=== PATIENT | male | born 1975 | race Caucasian/White ===

== ENCOUNTER 2021-04-30 02:35 | Emergency (ER) | payer BC ==
--- NOTE | 2021-04-30 03:26 | EDM.PDOC ---
ED HPI GENERAL MEDICAL PROBLEM - General Chief Complaint: Head Injury Stated Complaint: Intoxicated/Laceration Time Seen by Provider: 04/30/21 02:45 Source of Information: Reports: Patient, Police History Limitations: Reports: Intoxication - History of Present Illness INITIAL COMMENTS - FREE TEXT/NARRATIVE: Claude is a 46 year old male who presents to ER per EMS after a fall outside the local bar. Was reported to have fallen and hit the back of his head and was unresponsive. While with EMS, restless and uncooperative. Has small laceration to the back of his head. Is oriented to person and place but does not answer questions with a straight answer. Startles easily. Witnesses report he did "fall hard and was just lying there after". Police report he had sonoro us respirations. Patient admits to a headache. When asked about other concerns, will report an answer like "[phone] friends". Denies shortness of breath or chest pain. No nausea or vomiting. GCS 14, 1 for confusion. Onset: Today, Sudden Duration: Minutes:, Constant Location: Reports: Head Associated Symptoms: Reports: Confusion. Denies: Chest Pain, Cough, Fever/Chills, Loss of Appetite, Nausea/Vomiting, Shortness of Breath Posterior Head Pain Score (Numeric/FACES): 5 Past Medical History - Past Health History Medical/Surgical History: Denies Medical/Surgical History Social & Family History - Tobacco Use Tobacco Use Status *Q: Current Every Day Tobacco User - Alcohol Use Alcohol Use History: Yes Days Per Week of Alcohol Use: 7 Alcohol Use Frequency: Daily ED ROS GENERAL - Review of Systems Review Of Systems: See Below Constitutional: Denies: Fever, Chills, Malaise, Weakness HEENT: Denies: Ear Discharge, Ear Pain, Nosebleed, Throat Pain Respiratory: Denies: Shortness of Breath Cardiovascular: Denies: Chest Pain Endocrine: Denies: Fatigue GI/Abdominal: Denies: Abdominal Pain, Nausea, Vomiting : Reports: No Symptoms Musculoskeletal: Reports: No Symptoms Skin: Reports: Wound Neurological: Reports: Confusion, Headache ED EXAM, HEAD INJURY - Physical Exam Exam: See Below Exam Limited By: Intoxication General Appearance: Alert, Anxious Head: Normocephalic, Scalp Lacerations (1 cm laceration to his posterior scalp) Nexus Criteria: Evidence of Intoxication Eyes: Bilateral Eye: PERRL (does not follow commands to assess EOMs but does look around the room continuously at EMS, police and staff) Ears: Normal External Exam, Normal TMs Nose: Normal Inspection, Normal Mucousa, No Blood, Other (has abrasion and mild swelling to nose, reports that is from previous fall off the roof on Sunday) Throat/Mouth: Normal Inspection, Normal Oropharynx Neck: Non-Tender, Full Range of Motion, Normal Alignment, Normal Inspection Respiratory: No Respiratory Distress, Lungs Clear, Normal Breath Sounds Cardiovascular: Regular Rate, Rhythm GI/Abdominal Exam: Normal Bowel Sounds, Soft, Non-Tender Extremities: Normal Inspection, Normal Range of Motion Neurologic: Other (patient is restless, continuously standing, getting off cot. Conversing. does redirect.) Skin: Other (wound to scalp) - [place] Coma Score Best Eye Response ([place]): (4) Open Spontaneously Best Verbal Response ([place]): (4) Confused Conversation Best Motor Response ([place]): (6) Obeys Commands ED LACERATION/WOUND & CESAR PROC - Laceration/Wound Repair Left Posterior Head Lac/wound length in cm: 1.5 Appearance: Superficial, Linear Skin Prep: Chlorhexidine ([place]) Closed with: [place] # of Sutures: 3 Course - Vital Signs Last Recorded V/S: Last Vital Signs Temp 97.4 F 04/30/21 02:40 Pulse 87 04/30/21 02:40 Resp 12 04/30/21 02:40 BP 120/84 04/30/21 02:40 Pulse Ox 99 04/30/21 02:40 - Orders/Labs/Meds Orders: Active Orders 24 hr Category Date Time Status Head wo Cont [CT] Stat Exams 04/30/21 03:02 Ordered UA RFX EMY AND CULT IF INDIC [URIN] Stat Lab 04/30/21 03:12 Ordered Labs: Laboratory Tests 04/30/21 04/30/21 Range/Units 03:28 03:28 WBC 5.7 (4.0-10.0) x10^3/uL RBC 4.79 (4.5-6.0) x10^6/uL Hgb 15.4 (14.0-18.0) g/dL Hct 43.9 (40.0-52.0) % MCV 91.6 (78.0-93.0) fL MCH 32.2 H (26.0-32.0) pg MCHC 35.1 (32.0-36.0) g/dL RDW Coeff of Nicolasa 11.9 (10.0-15.0) % Plt Count 233 (130-400) x10^3/uL Immature Gran % (Auto) 0.40 (0.00-0.43) % Neut % (Auto) 43.8 L (50.0-80.0) % Lymph % (Auto) 43.8 (25.0-50.0) % [place] % (Auto) 10.0 (2.0-11.0) % Eos % (Auto) 1.8 (0.0-4.0) % Baso % (Auto) 0.2 (0.2-1.2) % Neut # (Auto) 2.5 (1.8-7.7) x10^3/uL Lymph # (Auto) 2.5 (1.0-4.8) x10^3/uL [place] # (Auto) 0.6 (0.0-0.8) x10^3/uL Eos # (Auto) 0.1 (0.0-0.5) x10^3/uL Baso # (Auto) 0.0 (0.0-0.2) x10^3/uL Immature Gran # (Auto) 0.02 (0.00-0.07) x10^3/uL Sodium 141 (136-145) mmol/L Potassium 3.5 (3.5-5.1) mmol/L Chloride 101 (98-107) mmol/L Carbon Dioxide 29 (21-32) mmol/L Anion Gap 14.5 (5-15) mmol/L BUN 7 (7-18) mg/dL Creatinine 0.8 (0.70-1.30) mg/dL Est Cr Clr Drug Dosing TNP Estimated GFR (MDRD) > 60 Glucose 114 H (70-99) mg/dL Calcium 8.4 L (8.5-10.1) mg/dL Corrected Calcium 8.2 L (8.5-10.1) mg/dL Total Bilirubin 0.4 (0.2-1.0) mg/dL AST 21 (15-37) U/L ALT 39 (16-63) U/L Alkaline Phosphatase 71 (46-116) U/L C-Reactive Protein < 0.2 (<=0.9) mg/dL Total Protein 7.5 (6.4-8.2) g/dL Albumin 4.3 (3.4-5.0) g/dL Globulin 3.2 Albumin/Globulin Ratio 1.34 Ethyl Alcohol 394 H* (0-3) mg/dL Meds: Medications Discontinued Medications Generic Name Dose Route Start Last Admin Trade Name Aldo PRN Reason Stop Dose Admin Acetaminophen 650 mg 04/30/21 04:29 Acetaminophen 325 Mg Tab PO 04/30/21 04:30 NOW ONE Lorazepam 1 mg 04/30/21 03:32 Lorazepam 2 Mg/Ml Sdv IM 04/30/21 03:33 ONETIME ONE - Re-Assessments/Exams Free Text/Narrative Re-Assessment/Exam: 04/30/21 0300-Patient is restless, constantly getting up of cot, arguing. Police here for assist with patient. 0315-Able to apply 3 robel to head. Did tolerate well but took much reassurance to allow to do procedure 0330-Lab here, police assisting. Nurse reassuring until finally able to draw labs. 0345-Over for CT. 0400-Continues to argue with staff. here. She reports that patient also fell off of roof on Sunday. Does not believe he lost consciousness that day but sustained a small cut to the bridge of his nose. Abrasion to forehead. Was not seen that day. 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 Ativan given to help with restlessness/cooperation. 04/30/21 04:15-CT scan is negative. Discussed with radiologist. Patient remains uncooperative. states he is often combative and argumentative when he is intoxicated. 0425-Discussed results with , labs normal except blood alcohol is 394. She is agreeable to taking him home and watching him as states "he will be less anxious and more cooperative with being home". She is able to be with him so if status changes, can return back to the ER. 0436-Has been sleeping for last 10 minutes. Awoke for discharge, cooperative. Assisted to wheelchair and to car. Again asked if comfortable monitoring him and watching for changes, does agree. Departure - Departure Time of Disposition: 04:37 Disposition: Home, Self-Care 01 Condition: Fair Clinical Impression: Concussion with less than 1 hour loss of consciousness, Intoxication, Laceration - Discharge Information *PRESCRIPTION DRUG MONITORING PROGRAM REVIEWED*: No *COPY OF PRESCRIPTION DRUG MONITORING REPORT IN PATIENT [place]: No Instructions: Head Injury, Adult, Laceration Care, Adult Referrals: PCP,None [Primary Care Provider] - Forms: ED Department Discharge Additional Instructions: 1. Rest 2. Tylenol for headache 3. Watch patient closely for any changes in mentation, vomiting, pupillary changes, increased pain and return if concerns. 4. [place] out in 5 days 5. Keep wound clean and dry 6. Follow up or return with any changes. Sepsis Event Note (ED) - Focused Exam Vital Signs: Vital Signs Temp Pulse Resp BP Pulse Ox 04/30/21 02:40 97.4 F 87 12 120/84 99 - My Orders Last 24 Hours: My Active Orders 04/30/21 03:02 Head wo Cont [CT] Stat 04/30/21 03:12 UA RFX EMY AND CULT IF INDIC [URIN] Stat - Assessment/Plan Last 24 Hours: My Active Orders 04/30/21 03:02 Head wo Cont [CT] Stat 04/30/21 03:12 UA RFX EMY AND CULT IF INDIC [URIN] Stat
[2021-04-30] MEDS ORDERED: LORazepam 2 MG/ML SDV IM ONE (03:32)
[2021-04-30 03:56] LABS: CHLORIDE,CL 101 mmol/L (98-107); SODIUM,NA 141 mmol/L (136-145)
[2021-04-30 03:58] LABS: ANION GAP 14.5 mmol/L (5-15)
[2021-04-30] MEDS ORDERED: Acetaminophen 325 MG Tab PO ONE (04:29)
--- NOTE | 2021-04-30 08:43 | CT ---
[id number] CT/CT Head WO IV EXAM: CT Head WO IV CLINICAL DATA: FALL COMPARISON STUDY: None FINDINGS: Findings are within limitation of patient motion artifact. Laceration and small scalp contusion overlying the left occipital region. Laceration has been repaired with cutaneous robel. No underlying calvarial fracture. No acute intracranial hemorrhage or extra-axial fluid collection. No hydrocephalus. [place]-white matter differentiation remains well-preserved. IMPRESSION: No acute intracranial findings. Arthur Ulloa MD 04/30/21 0842 Thank you for allowing us to participate in the care of your patient.
== END 2021-04-30 04:35 | disposition home or self-care (01) ==
LOC: VM.ED 02:35
DX: S06.0X1A Concussion with loss of consciousness of 30 minutes or less, initial encounter (principal); S01.01XA Laceration without foreign body of scalp, initial encounter; F10.129 Alcohol abuse with intoxication, unspecified; Y90.8 Blood alcohol level of 240 mg/100 ml or more; Z72.0 Tobacco use; W18.09XA Striking against other object with subsequent fall, initial encounter
CPT/HCPCS: 12001; 36415; 70450; 80053; 80307; 85025; 86140; 96372; 99283; 99285-25; A9270-GY; J2060